=== PATIENT | female | born 1985 | race Caucasian/White ===

== ENCOUNTER 2017-01-08 19:12 | Emergency (ER) | payer BC ==
[~2017-01-08] VITALS: Ht 160 cm; Wt 80.3 kg
[~2017-01-08 19:12] MED LIST: BACTRIM,SEPT1 TABLET PO; CEFDINIR300 MG PO; KEFLEX500 MG PO; NAPROSYN500 MG PO; PREDNISONE20 MG PO; PYRIDIUM100 MG PO; PYRIDIUM200 MG PO; ULTRAM50 MG PO
[2017-01-08 19:58] LABS: HEMATOCRIT 41.2 % (36.0-46.0); MCH 25.3 PG (29.0-34.0); MCHC 31.8 G/DL (30.0-36.0); MCV 79.7 FL (83-99); MEAN PLAT.VOLUME 10.4 uM^3 (9.5-12.4); PLATELET COUNT 155 K/uL (156-360); RBC DIS.WIDTH-CV 16.2 % (11.8-14.6); RBC DIS.WIDTH-SD 46.3 % (39-53); RED BLOOD COUNT 5.17 M/uL (3.80-5.20); WHITE BLOOD COUNT 8.2 K/uL (4.1-10.2)
[2017-01-08 20:09] LABS: CHLORIDE 110 mEq/L (99-109); POTASSIUM 3.4 mEq/L (3.7-5.4); SODIUM 139 mEq/L (136-147)
[2017-01-08 20:11] LABS: GLUCOSE 101 mg/dL (70-99)
[2017-01-08 20:13] LABS: ANION GAP 11 MEQ/L (2-14)
[2017-01-08 20:15] LABS: ALKALINE PHOSPHATASE 81 IU/L (3-129); GFR ESTIMATE (CALCULATED) > 59 mL/min/
[2017-01-08 20:16] LABS: UREA NITROGEN (BUN) 6 mg/dL (9-23)
[2017-01-08 21:05] LABS: INTERNAL CONTROL VALID? YES; MONOSPOT (MONONUCLEOSIS SEROL) NEGATIVE
[2017-01-08 21:18] LABS: ADD MIUA? YES; BILIRUBIN NEGATIVE; BLOOD NEGATIVE; COLOR YELLOW ((YELLOW)); GLUCOSE (STRIP) NEGATIVE; KETONES 80; LEUKOCYTES TRACE; NITRITE NEGATIVE; PROTEIN (STRIP) 100; SPECIFIC GRAVITY 1.023 (1.000-1.030); UROBILINOGEN 0.2 MG/DL (0.2-1.0)
[2017-01-08 21:29] LABS: BACTERIA RARE /HPF; EPITHELIAL CELLS 1+ /HPF; MUCUS 3+ /LPF; RED BLOOD CELLS 0-5 /HPF (0-5); UCUL ADDED? NO
[2017-01-08 21:59] VITALS: BP 144/77
[2017-01-08] MEDS ORDERED: ZOFRAN4 MG PO (22:01)
== END 2017-01-08 22:13 | disposition home or self-care (01) ==
LOC: EME 19:12
DX: O21.0 Mild hyperemesis gravidarum (principal); R19.7 Diarrhea, unspecified; Z3A.08 8 weeks gestation of pregnancy
CPT/HCPCS: 80053; 81003; 84702; 85027; 86308; 99281; 99284; J2405; J7030

== ENCOUNTER 2017-04-11 10:03 | Emergency (ER) | payer BC ==
[~2017-04-11] VITALS: Ht 160 cm; Wt 81.4 kg
[~2017-04-11 10:03] MED LIST changes: +ZOFRAN4 MG PO
[2017-04-11 10:09] VITALS: BP 124/75
== END 2017-04-11 12:08 | disposition left against medical advice (07) ==
LOC: EME 10:03
DX: R55 Syncope and collapse (principal); Z53.21 Procedure and treatment not carried out due to patient leaving prior to being seen by health care provider
CPT/HCPCS: 80048; 85027; 93005

== ENCOUNTER 2017-06-16 18:57 | Emergency (ER) | payer BC, OTHER ==
[~2017-06-16] VITALS: Ht 160 cm; Wt 90.0 kg
[2017-06-16 19:33] LABS: EOSINOPHIL (%) 0.2 % (0-5); HEMATOCRIT 29.6 % (36.0-46.0); IMMATURE GRANULOCYTE (%) 1.2 % (0.0-0.7); IMMATURE GRANULOCYTE COUNT 0.2 K/uL; INSTRUMENT ABS NEUTROPHIL CT 9.7 K/uL; LYMPHOCYTE COUNT 1.9 K/uL (1.0-2.8); MCH 25.5 PG (29.0-34.0); MCHC 31.1 G/DL (30.0-36.0); MEAN PLAT.VOLUME 10.4 uM^3 (9.5-12.4); MONOCYTE (%) 4.9 % (3-12); MONOCYTE COUNT 0.6 K/uL (0-0.8); NEUTROPHIL (%) 78.2 % (45-76); NEUTROPHIL COUNT 9.7 K/uL (1.8-6.4); PLATELET COUNT 142 K/uL (156-360); RBC DIS.WIDTH-SD 44.8 % (39-53); RED BLOOD COUNT 3.61 M/uL (3.80-5.20); WHITE BLOOD COUNT 12.4 K/uL (4.1-10.2)
[2017-06-16 19:45] LABS: CHLORIDE 109 mEq/L (99-109); POTASSIUM 3.6 mEq/L (3.7-5.4); SODIUM 139 mEq/L (136-147)
[2017-06-16 19:47] LABS: GLUCOSE 137 mg/dL (70-99)
[2017-06-16 19:48] LABS: ANION GAP 10 MEQ/L (2-14)
[2017-06-16 19:50] LABS: GFR ESTIMATE (CALCULATED) > 59 mL/min/
[2017-06-16 19:51] LABS: UREA NITROGEN (BUN) 9 mg/dL (9-23)
[2017-06-16 21:08] LABS: ADD MIUA? YES; BILIRUBIN NEGATIVE; BLOOD SMALL; COLOR YELLOW ((YELLOW)); GLUCOSE (STRIP) 50; KETONES 20; LEUKOCYTES TRACE; NITRITE NEGATIVE; PROTEIN (STRIP) 30; SPECIFIC GRAVITY 1.011 (1.000-1.030); UROBILINOGEN 0.2 MG/DL (0.2-1.0)
[2017-06-16 21:22] LABS: BACTERIA 2+ /HPF; EPITHELIAL CELLS 2+ /HPF; MUCUS 1+ /LPF; RED BLOOD CELLS 0-5 /HPF (0-5); UCUL ADDED? YES; WHITE BLOOD CELLS 0-5 /HPF (0-5)
[2017-06-16 21:23] LABS: CASTS PRESENT /LPF
[2017-06-16 21:25] LABS: CRYSTALS NONE SEEN; HYALINE CASTS 0-5 /LPF
[2017-06-16 22:13] VITALS: BP 123/68
== END 2017-06-16 22:14 | disposition home or self-care (01) ==
LOC: EME 18:57
PROVIDERS: Emergency Medicine
DX: O99.89 Other specified diseases and conditions complicating pregnancy, childbirth and the puerperium (principal); O99.013 Anemia complicating pregnancy, third trimester; D64.9 Anemia, unspecified; O23.43 Unspecified infection of urinary tract in pregnancy, third trimester; R00.2 Palpitations; R06.02 Shortness of breath
CPT/HCPCS: 80048; 81003; 85025; 85379; 87086; 93005; 93970; 99281; 99285

== ENCOUNTER 2017-07-22 17:02 | Outpatient (CLI) | payer BC ==
[2017-07-22 17:26] VITALS: BP 128/85
== END 2017-07-22 19:10 | disposition home or self-care (01) ==
LOC: LDRP-OP → 2WEST 17:04 → LDRP-OP 09-15 10:13
DX: O26.893 Other specified pregnancy related conditions, third trimester (principal); O99.283 Endocrine, nutritional and metabolic diseases complicating pregnancy, third trimester; E05.90 Thyrotoxicosis, unspecified without thyrotoxic crisis or storm; Z3A.36 36 weeks gestation of pregnancy; O34.219 Maternal care for unspecified type scar from previous cesarean delivery
CPT/HCPCS: 59025; G0378

== ENCOUNTER 2017-08-12 05:05 | Inpatient (IN) | payer BC ==
[~2017-08-12] VITALS: Ht 160 cm; Wt 91.1 kg
[~2017-08-12 05:05] MED LIST changes: +ASPIR 8181 M1 PO; +BENADRYL25 MG PO; +EXTRA STRENGTH500 M1 PO; +HALLS3.2 MG MM; +VICKS VAPORUB O50 GM TP
[2017-08-12 05:26] VITALS: BP 115/62
[2017-08-12] MEDS ORDERED: PRENATAL TABLE1 EAC3 PO (05:39)
[2017-08-12 06:00] LABS: BASOPHIL (%) 0.4 % (0-1); BASOPHIL COUNT 0.1 K/uL (0-0.1); EOSINOPHIL (%) 0.4 % (0-5); EOSINOPHIL COUNT 0.1 K/uL (0-0.3); HEMATOCRIT 33.5 % (36.0-46.0); HEMOGLOBIN 9.8 G/DL (11.9-15.5); IMMATURE GRANULOCYTE (%) 1.4 % (0.0-0.7); LYMPHOCYTE COUNT 2.4 K/uL (1.0-2.8); MCH 22.2 PG (29.0-34.0); MCHC 29.3 G/DL (30.0-36.0); MONOCYTE (%) 4.1 % (3-12); MONOCYTE COUNT 0.5 K/uL (0-0.8); NEUTROPHIL (%) 72.7 % (45-76); NEUTROPHIL COUNT 8.3 K/uL (1.8-6.4); PLATELET COUNT 185 K/uL (156-360); RBC DIS.WIDTH-CV 15.9 % (11.8-14.6); RBC DIS.WIDTH-SD 43.9 % (39-53); RED BLOOD COUNT 4.41 M/uL (3.80-5.20); WHITE BLOOD COUNT 11.4 K/uL (4.1-10.2)
[2017-08-12 07:30] LABS: AMPHETAMINE NEGATIVE (500 ng/mL); BENZODIAZEPINES NEGATIVE (150 ng/mL); COCAINE NEGATIVE (150 ng/mL); METHADONE NEGATIVE (200 ng/mL); METHAMPHETAMINE NEGATIVE (500 ng/mL); OPIATES (MORPHINE) PRESUMPTIVE POSITIVE (100 ng/mL); PHENCYCLIDINE NEGATIVE (25 ng/mL); THC CANNABINOIDS PRESUMPTIVE POSITIVE (50 ng/mL); TRICYCLIC ANTIDEPRESSANTS NEGATIVE (300 ng/mL)
[2017-08-12 07:31] LABS: BARBITURATES NEGATIVE (200 ng/mL); BUPRENORPHINE NEGATIVE (10 ng/mL); OXYCODONE PRESUMPTIVE POSITIVE (100 ng/mL); PROPOXYPHENE NEGATIVE (300 ng/mL)
[2017-08-12 19:31] VITALS: BP 113/62
[2017-08-12 23:11] VITALS: BP 125/79
[2017-08-13 02:35] VITALS: BP 119/70
[2017-08-13 07:15] LABS: BASOPHIL (%) 0.3 % (0-1); EOSINOPHIL (%) 0.4 % (0-5); EOSINOPHIL COUNT 0.1 K/uL (0-0.3); HEMATOCRIT 24.7 % (36.0-46.0); HEMOGLOBIN 7.3 G/DL (11.9-15.5); IMMATURE GRANULOCYTE (%) 0.7 % (0.0-0.7); LYMPHOCYTE (%) 18.8 % (15-42); LYMPHOCYTE COUNT 2.2 K/uL (1.0-2.8); MCH 22.3 PG (29.0-34.0); MCHC 29.6 G/DL (30.0-36.0); MCV 75.5 FL (83-99); MONOCYTE (%) 4.3 % (3-12); MONOCYTE COUNT 0.5 K/uL (0-0.8); NEUTROPHIL (%) 75.5 % (45-76); NEUTROPHIL COUNT 8.7 K/uL (1.8-6.4); NRBC (%) 0.2 /100 WBC (0-0); PLATELET COUNT 151 K/uL (156-360); RBC DIS.WIDTH-CV 15.9 % (11.8-14.6); RBC DIS.WIDTH-SD 43.8 % (39-53); RED BLOOD COUNT 3.27 M/uL (3.80-5.20); WHITE BLOOD COUNT 11.6 K/uL (4.1-10.2)
[2017-08-14 07:26] VITALS: BP 131/62
[2017-08-14 19:21] VITALS: BP 135/82
[2017-08-14 23:19] VITALS: BP 142/73
[2017-08-15 08:30] VITALS: BP 126/79
[2017-08-16 07:49] VITALS: BP 117/74
[2017-08-16] MEDS ORDERED: ENDOCET 5-3251 EACH PO (12:07)
[2017-08-16] MEDS ORDERED: IBUPROFEN800 MG PO (12:07)
[2017-08-16] MEDS ORDERED: FERROUS SULFAT325 MG PO (12:07)
[2017-08-16 12:56] VITALS: BP 130/84
[2017-08-16 14:52] VITALS: BP 128/79
== END 2017-08-16 16:35 | disposition home or self-care (01) | DRG 765 ==
LOC: 2WEST 05:05 → 2SOUTH 08:53 → 2WEST 08-16 05:44
PROVIDERS: Obstetrics & Gynecology
DX: O34.219 Maternal care for unspecified type scar from previous cesarean delivery (principal); Z3A.39 39 weeks gestation of pregnancy; O99.214 Obesity complicating childbirth; E66.9 Obesity, unspecified; Z37.0 Single live birth; Z30.2 Encounter for sterilization; D62 Acute posthemorrhagic anemia; O99.02 Anemia complicating childbirth; F12.90 Cannabis use, unspecified, uncomplicated; F11.10 Opioid abuse, uncomplicated; O99.324 Drug use complicating childbirth
CPT/HCPCS: 84999; 85025; 86850; 86900; 86901; J0690; J1100; J2274; J2405; J3010; J7120